=== PATIENT | female | born 1960 | race Caucasian/White ===

== ENCOUNTER 2019-12-07 17:18 | Emergency (ER) | payer SELFPAY ==
[~2019-12-07 17:18] MED LIST: Iopamidol 370 76% 100 ML VIAL ONE
[2019-12-07 17:55] LABS: Hemoglobin 16.7 g/dL (12.0-16.0); Mean Corpuscular HGB CONC 31.8 g/dL (32.0-36.0); Mean Corpuscular Hemoglobin 31.7 pg (27.0-31.0); Mean Corpuscular Volume 99.7 fL (78.0-98.0); Mean Platelet Volume 6.1 fL (7.4-10.4); Platelet Count 414 thou/uL (130-400); Red Blood Cell (RBC) Count 5.26 mill/uL (4.20-5.40); White Blood Cell (WBC) Count 18.4 thou/uL (4.8-10.8)
[2019-12-07 18:02] LABS: ALT (SGPT) 21 U/L (8-55); AST (SGOT) 20 U/L (5-34); Albumin 4.6 g/dL (3.5-5.0); Alkaline Phosphatase 97 U/L (40-110); Anion Gap 18 mmol/L (10-20); BUN (Urea Nitrogen) 9 mg/dL (9.8-20.1); Bilirubin, Total 0.6 mg/dL (0.2-1.2); Calc. Creatinine Clearance 0 mL/min (70-130); Calcium 9.9 mg/dL (7.8-10.44); Carbon Dioxide 20 mmol/L (22-29); Chloride 104 mmol/L (98-107); Estimated GFR-MDRD 74; Globulin 2.8 g/dL (2.4-3.5); Glucose 96 mg/dL (70-105); Potassium 3.8 mmol/L (3.5-5.1); Protein, Total 7.4 g/dL (6.0-8.3); Sodium 138 mmol/L (136-145)
--- NOTE | 2019-12-07 18:25 | CT ---
CT OF BRAIN PERFORMED WITHOUT CONTRAST ENHANCEMENT: 12/07/19 HISTORY: Numbness in tongue. The ventricular and cisternal system is within normal limits. There are no signs for intracerebral he morrhage or extra-axial fluid collections. No mass lesion or mass effect. Mastoid air cells and visua lized sinuses are clear. IMPRESSION: No acute intracranial abnormalities. POS: OFF
[2019-12-07 19:02] LABS: Eosinophils 1 % (0-10); Lymphocytes 36 % (21-51); MDiff Complete? YES; Monocytes 6 % (0-10); Neutrophil 57 % (42-75); RBC Morphology Normal
--- NOTE | 2019-12-07 19:13 | CT ---
CT ANGIO OF HEAD AND NECK PERFORMED WITH INTRAVENOUS CONTRAST ENHANCEMENT WITH 3D RECONSTRUCTIONS: 12/07/19 HISTORY: Headache with right hand numbness. There are severe emphysematous lung changes seen in the upper lobes. No infiltrative process. Thyroid gland region is unremarkable. No significant jugular chain adenopathy. Parapharyngeal spaces appear clear. 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 The right vertebral artery is very small. It appears to terminate in a PICA br anch. The basilar artery is supplied by the left vertebral. On the right side, the right common internal and external carotid arteries show no areas of significa nt narrowing. On the left, the left common carotid, internal and external carotid arteries show no evidence of any significant stenosis by NASCET criteria. CT ANGIO OF BRAIN PERFORMED WITH INTRAVENOUS CONTRAST ENHANCEMENT WITH 3D RECONSTRUCTIONS: The anterior and middle cerebral arteries and their branches appear symmetric. I do not see any signs of any large vessel occlusion. Vertebral basilar system is unremarkable. IMPRESSION: 1. Severe emphysematous lung change. 2. No evidence of any significant internal carotid stenosis and no evidence of any intracerebral abnormalities. POS: OFF
[2019-12-07] MEDS ORDERED: Acetaminophen 500 MG TAB ONE (19:22)
== END 2019-12-07 19:45 | disposition home or self-care (01) ==
LOC: NAV ERS 17:18
DX: R20.2 Paresthesia of skin (principal); J44.9 Chronic obstructive pulmonary disease, unspecified; E78.5 Hyperlipidemia, unspecified; E03.9 Hypothyroidism, unspecified; F41.9 Anxiety disorder, unspecified; F32.9 Major depressive disorder, single episode, unspecified; R51 Headache; F17.210 Nicotine dependence, cigarettes, uncomplicated; Z79.899 Other long term (current) drug therapy
CPT/HCPCS: 70450; 70496; 70498; 80053; 85025; 93005; Q9967

== ENCOUNTER 2020-04-01 13:01 | Emergency (ER) | payer OTHER, SELFPAY ==
[2020-04-01 13:44] LABS: #Basophils 0.1 thou/uL (0.0-0.2); #Eosinphils 0.1 thou/uL (0.0-0.7); #Lymphocytes 3.4 thou/uL (1.20-3.40); #Monocytes 0.8 thou/uL (0.11-0.59); #Neutrophils 5.9 thou/uL (1.40-6.50); %Basophils 0.9 % (0.0-1.0); %Lymphocytes 33.4 % (21.0-51.0); %Monocytes 7.7 % (0.0-10.0); Hemoglobin 15.3 g/dL (12.0-16.0); Mean Corpuscular Hemoglobin 32.5 pg (27.0-31.0); Mean Corpuscular Volume 98.6 fL (78.0-98.0); Mean Platelet Volume 6.3 fL (7.4-10.4); Platelet Count 390 thou/uL (130-400); RBC Distribution Width 11.7 % (11.5-14.5); Red Blood Cell (RBC) Count 4.71 mill/uL (4.20-5.40); White Blood Cell (WBC) Count 10.3 thou/uL (4.8-10.8)
[2020-04-01 13:54] LABS: ALT (SGPT) 17 U/L (8-55); AST (SGOT) 19 U/L (5-34); Albumin 4.3 g/dL (3.5-5.0); Alkaline Phosphatase 96 U/L (40-110); Anion Gap 15 mmol/L (10-20); BUN (Urea Nitrogen) 11 mg/dL (9.8-20.1); Bilirubin, Total 0.4 mg/dL (0.2-1.2); CK (CPK) 125 U/L (29-168); Calc. Creatinine Clearance 0 mL/min (70-130); Calcium 9.5 mg/dL (7.8-10.44); Carbon Dioxide 23 mmol/L (22-29); Chloride 106 mmol/L (98-107); Globulin 2.6 g/dL (2.4-3.5); Glucose 97 mg/dL (70-105); Potassium 3.8 mmol/L (3.5-5.1); Protein, Total 6.9 g/dL (6.0-8.3); Sodium 140 mmol/L (136-145)
[2020-04-01 14:22] LABS: Lipase 29 U/L (8-78)
--- NOTE | 2020-04-01 15:31 | RAD ---
PORTABLE CHEST ONE VIEW: 04/01/20 at 2:06 p.m. HISTORY: Chest pain. FINDINGS: The heart size is normal. The lungs are expanded without focal areas of consolidation, pneumothoraces , or pleural effusions. IMPRESSION: No acute process. POS: AH
== END 2020-04-01 16:30 | disposition short-term general hospital (02) ==
LOC: NAV ERS 13:01
DX: R07.2 Precordial pain (principal); E78.5 Hyperlipidemia, unspecified; J44.9 Chronic obstructive pulmonary disease, unspecified; E03.9 Hypothyroidism, unspecified; F17.210 Nicotine dependence, cigarettes, uncomplicated; Z79.899 Other long term (current) drug therapy
CPT/HCPCS: 71045; 80053; 82550; 83690; 84484; 85025; 85379; 93005